=== PATIENT | female | born 1935 | race Caucasian/White ===

== ENCOUNTER 2021-01-09 12:21 | Inpatient (IN) | payer MEDICARE ==
[~2021-01-09] VITALS: Ht 165.1 cm; Wt 55.4 kg
[~2021-01-09 12:21] MED LIST: ALENDRONATE SOD35 MG PO; AMLODIPINE BESYL5 MG PO; ASA325 PO; BENAZEPRIL HCL10 MG PO; BENAZEPRIL HCL40 MG PO; CALCIUM + D PO; CALCIUM600 MG PO; CETIRIZINE HCL10 MG PO; FERROUS SULFAT325 MG PO; FUROSEMIDE40 MG PO; GABAPENTIN300 MG PO; KLOR-CON 1010 MEQ PO; KLOR-CON25 MEQ PO; METOPROLOL SUCC50 MG PO; NORCO 10-325 T1 EACH PO; NORCO 7.5-3251 EACH PO; NRC7.5T PO; OMEPRAZOLE20 M1 PO; OMEPRAZOLE40 MG PO; POTASSIUM99 M1 PO; SIMVASTATIN40 MG PO; ULTRAM 50MG50 MG PO; VITAMIN D PO; [UNRECOGNIZED DRUG - REMARK]
[2021-01-09 13:03] LABS: BASOPHILS % 0.1 % (0.0-1.0); HEMATOCRIT 30.4 % (34.2-44.1); HEMOGLOBIN 9.8 g/dL (12.0-16.0); LYMPHOCYTES # (AUTO) 0.3 (1.0-3.2); LYMPHOCYTES % 4.5 % (18.0-39.1); MEAN CORPUSCULAR HEMOGLOBIN 31.8 pg (28-32); MEAN CORPUSCULAR HGB CONC 32.2 g/dL (31-35); MEAN CORPUSCULAR VOLUME 98.7 fL (81-99); MONOCYTES # (AUTO) 0.2 (0.2-0.8); MONOCYTES % 2.8 % (4.4-11.3); NEUTROPHILS # (AUTO) 6.6 (2.1-6.9); NEUTROPHILS % 92.3 % (38.7-80.0); PLATELET COUNT 230 x10e3/uL (140-360); RED BLOOD COUNT 3.08 x10e6/uL (3.6-5.1); RED CELL DISTRIBUTION WIDTH 12.2 % (11.7-14.4)
[2021-01-09] MEDS ORDERED: ONDANSETRON HCL INJ 2MG/ML 2ML 2 MG/ML VIAL IV STA (13:10)
[2021-01-09] MEDS ORDERED: SODIUM CHLORIDE 0.9% 500ML 500 ML IV ONE ×2 (13:15→15:30)
[2021-01-09 13:25] LABS: ALBUMIN 3.9 g/dL (3.5-5.0); ALBUMIN/GLOBULIN RATIO 1.2 (0.8-2.0); ANION GAP 14.5 mmol/L (8-16); CALCIUM 9.1 mg/dL (8.4-10.2); CREATININE, SERUM 0.78 mg/dL (0.57-1.11); POTASSIUM 4.5 mmol/L (3.5-5.1)
[2021-01-09] MEDS ORDERED: SODIUM CHLORIDE 0.9% 50ML 50 ML ONE (13:49)
[2021-01-09] MEDS ORDERED: IOPAMIDOL 370 MG/ML 200 ML INFUS..BTL INJ ONE (13:49)
[2021-01-09 14:01] LABS: LYMPHOCYTES % (MANUAL) 2 % (19-48); MONOCYTES % (MANUAL) 4 % (3.4-9.0); NEUTROPHILS % (MANUAL) 94 % (40-74)
[2021-01-09 14:03] LABS: PLATELET ESTIMATE ADEQUATE; PLATELET MORPHOLOGY COMMENT FEW GIANT; RBC MORPHOLOGY COMMENT NORMAL
[2021-01-09 14:25] LABS: CLARITY,URINE SL CLOUDY (CLEAR); COLOR,URINE YELLOW (YELLOW); KETONES,URINE NEGATIVE (NEGATIVE); LEUKOCYTE ESTERASE ,URINE NEGATIVE (NEGATIVE); NITRITE,URINE NEGATIVE (NEGATIVE); PROTEIN,URINE DIPSTICK NEGATIVE (NEGATIVE); URINE UROBILINOGEN 0.2 mg/dL (0.2 - 1)
[2021-01-09 14:36] LABS: BACTERIA,URINE RARE /HPF; EPITHELIAL CELLS,URINE RARE /LPF; RBC,URINE 0-5 /HPF (0-5)
[2021-01-09] MEDS ORDERED: MORPHINE SULFATE INJ 2 MG/ML SYR IV STA ×2 (14:38→16:00)
[2021-01-09] MEDS ORDERED: METOCLOPRAMIDE HCL 10 MG/2ML VIAL IV ONE (14:45)
[2021-01-09 17:26] VITALS: BP 154/75
[2021-01-09] MEDS ORDERED: ATORVASTATIN CA20 MG PO (17:34)
[2021-01-09 17:38] VITALS: BP 154/75
[2021-01-09 17:47] VITALS: BP 154/75
[2021-01-09 20:00] VITALS: BP 147/70
[2021-01-09] MEDS ORDERED: METOPROLOL TARTRATE INJ 1 MG/ML VIAL IV ONE (20:00)
[2021-01-09] MEDS: MORPHINE SULFATE INJ 2 MG/ML SYR IV PRN (20:09)
[2021-01-09] MEDS: SODIUM CHLORIDE 0.9% 1000ML 1,000 ML IV SCH (20:09)
[2021-01-09] MEDS: PIPERACILLIN/TAZOBACTAM 3.375 GM in SODIUM CHLORIDE 0.9% 50ML 50 ML IV SCH (20:10)
[2021-01-09 21:05] VITALS: BP 111/60
[2021-01-09 21:16] VITALS: BP 147/70
[2021-01-10] VITALS (7 sets, daily range): BP systolic 128–165; BP diastolic 61–95
[2021-01-10] MEDS: PIPERACILLIN/TAZOBACTAM 3.375 GM in SODIUM CHLORIDE 0.9% 50ML 50 ML IV SCH ×5 (00:12→23:57)
[2021-01-10] MEDS: MORPHINE SULFATE INJ 2 MG/ML SYR IV PRN ×4 (01:34→19:27)
[2021-01-10 02:00] LABS: % IRON SATURATION 25 % (15-50); IRON 94 ug/dL (50-170); TOTAL IRON BINDING CAPACITY 381 ug/dL (261-478); TRANSFERRIN 272 mg/dL (180-382)
[2021-01-10] MEDS: FUROSEMIDE INJ 10 MG/ML 2 ML VIAL IV SCH (09:08)
[2021-01-10 09:42] LABS: WBC,FECAL (FECAL LACTOFERRIN) POSITIVE (NEGATIVE)
[2021-01-10] MEDS: PROMETHAZINE 12.5MG/ NACL 0.9% 12.5 MG/50 ML BAG IV PRN (11:20)
[2021-01-10 15:02] LABS: C DIFFICILE TOXIN A&B AMP PROB NEGATIVE (NEGATIVE)
[2021-01-10] MEDS: SODIUM CHLORIDE 0.9% 1000ML 1,000 ML IV SCH ×2 (18:00→23:57)
[2021-01-10] MEDS: GABAPENTIN 400 MG CAP PO SCH (19:25)
[2021-01-10 19:47] LABS: BASOPHILS % 0.1 % (0.0-1.0); HEMATOCRIT 25.1 % (34.2-44.1); HEMOGLOBIN 7.9 g/dL (12.0-16.0); LYMPHOCYTES # (AUTO) 0.6 (1.0-3.2); LYMPHOCYTES % 7.2 % (18.0-39.1); MEAN CORPUSCULAR HEMOGLOBIN 32.2 pg (28-32); MEAN CORPUSCULAR HGB CONC 31.5 g/dL (31-35); MEAN CORPUSCULAR VOLUME 102.4 fL (81-99); MONOCYTES # (AUTO) 0.4 (0.2-0.8); MONOCYTES % 5.3 % (4.4-11.3); NEUTROPHILS # (AUTO) 6.6 (2.1-6.9); NEUTROPHILS % 86.9 % (38.7-80.0); PLATELET COUNT 177 x10e3/uL (140-360); RED BLOOD COUNT 2.45 x10e6/uL (3.6-5.1); RED CELL DISTRIBUTION WIDTH 12.9 % (11.7-14.4)
[2021-01-10 20:07] LABS: CALCIUM 8.8 mg/dL (8.4-10.2); CREATININE, SERUM 0.8 mg/dL (0.57-1.11)
[2021-01-11] VITALS (7 sets, daily range): BP systolic 119–135; BP diastolic 57–69
[2021-01-11] MEDS ORDERED: CYANOCOBALAMIN INJ 1,000 MCG/ML VIAL IM ONE (00:15)
[2021-01-11] MEDS: PIPERACILLIN/TAZOBACTAM 3.375 GM in SODIUM CHLORIDE 0.9% 50ML 50 ML IV SCH ×3 (05:38→18:00)
[2021-01-11] MEDS: FUROSEMIDE INJ 10 MG/ML 2 ML VIAL IV SCH (09:15)
[2021-01-11] MEDS: GABAPENTIN 400 MG CAP PO SCH ×3 (09:15→21:05)
[2021-01-11] MEDS: MORPHINE SULFATE INJ 2 MG/ML SYR IV PRN ×2 (09:16→21:05)
[2021-01-11] MEDS: CYANOCOBALAMIN INJ 1,000 MCG/ML VIAL IM SCH (11:30)
[2021-01-11 11:48] LABS: ANION GAP 13.8 mmol/L (8-16); CALCIUM 8.6 mg/dL (8.4-10.2); CREATININE, SERUM 0.8 mg/dL (0.57-1.11)
[2021-01-11 11:56] LABS: POTASSIUM 2.8 mmol/L (3.5-5.1)
[2021-01-11] MEDS ORDERED: POTASSIUM CHLORIDE 20 MEQ TAB CR PO NR (12:15)
[2021-01-11 16:15] LABS: ANION GAP 12.7 mmol/L (8-16); CREATININE, SERUM 0.75 mg/dL (0.57-1.11)
[2021-01-11 16:25] LABS: POTASSIUM 2.7 mmol/L (3.5-5.1)
[2021-01-11] MEDS ORDERED: POTASSIUM CHLORIDE 20 MEQ TAB CR PO STA ×2 (16:59→20:20)
[2021-01-11] MEDS ORDERED: POTASSIUM CHLORIDE 20MEQ/100ML 100 ML IV ONE (17:00)
[2021-01-11] MEDS ORDERED: POTASSIUM CHLORIDE 10MEQ/100ML 100 ML IV ONE (17:15)
[2021-01-11 20:37] LABS: CALCIUM 8.1 mg/dL (8.4-10.2); CREATININE, SERUM 0.75 mg/dL (0.57-1.11)
[2021-01-11] MEDS: SODIUM CHLORIDE 0.9% 1000ML 1,000 ML IV SCH (21:05)
[2021-01-12] VITALS (7 sets, daily range): BP systolic 132–141; BP diastolic 62–75
[2021-01-12] MEDS: PIPERACILLIN/TAZOBACTAM 3.375 GM in SODIUM CHLORIDE 0.9% 50ML 50 ML IV SCH ×4 (00:37→18:00)
[2021-01-12] MEDS ORDERED: CHOLESTYRAMINE 4 GM PACKET PO ONE (00:45)
[2021-01-12 07:16] LABS: BASOPHILS % 0.4 % (0.0-1.0); EOSINOPHILS % 0.4 % (0.0-6.0); HEMATOCRIT 25.6 % (34.2-44.1); HEMOGLOBIN 7.6 g/dL (12.0-16.0); LYMPHOCYTES # (AUTO) 1.1 (1.0-3.2); LYMPHOCYTES % 15.4 % (18.0-39.1); MEAN CORPUSCULAR HEMOGLOBIN 32.2 pg (28-32); MEAN CORPUSCULAR HGB CONC 29.7 g/dL (31-35); MEAN CORPUSCULAR VOLUME 108.5 fL (81-99); MONOCYTES # (AUTO) 0.5 (0.2-0.8); MONOCYTES % 7.8 % (4.4-11.3); NEUTROPHILS # (AUTO) 5.2 (2.1-6.9); NEUTROPHILS % 75.6 % (38.7-80.0); PLATELET COUNT 170 x10e3/uL (140-360); RED BLOOD COUNT 2.36 x10e6/uL (3.6-5.1); RED CELL DISTRIBUTION WIDTH 13.2 % (11.7-14.4)
[2021-01-12 07:36] LABS: INR 1.18; PROTHROMBIN TIME 15.2 seconds (11.9-14.5)
[2021-01-12 07:45] LABS: ANION GAP 9.3 mmol/L (8-16); CALCIUM 8.2 mg/dL (8.4-10.2); CREATININE, SERUM 0.67 mg/dL (0.57-1.11); MAGNESIUM 1.8 MG/DL (1.3-2.1); PHOSPHORUS 1.5 MG/DL (2.3-4.7); POTASSIUM 4.3 mmol/L (3.5-5.1)
[2021-01-12] MEDS: MORPHINE SULFATE INJ 2 MG/ML SYR IV PRN ×3 (08:15→22:27)
[2021-01-12] MEDS: GABAPENTIN 400 MG CAP PO SCH ×3 (09:00→21:10)
[2021-01-12] MEDS: CYANOCOBALAMIN INJ 1,000 MCG/ML VIAL IM SCH (09:00)
[2021-01-12] MEDS: FUROSEMIDE INJ 10 MG/ML 2 ML VIAL IV SCH (09:00)
[2021-01-12] MEDS: CHOLESTYRAMINE 4 GM PACKET PO SCH (09:45)
[2021-01-12] MEDS: SODIUM CHLORIDE 0.9% 1000ML 1,000 ML IV SCH (12:55)
[2021-01-13] VITALS (9 sets, daily range): BP systolic 132–153; BP diastolic 58–80
[2021-01-13] MEDS: SODIUM CHLORIDE 0.9% 1000ML 1,000 ML IV SCH (04:18)
[2021-01-13] MEDS: PIPERACILLIN/TAZOBACTAM 3.375 GM in SODIUM CHLORIDE 0.9% 50ML 50 ML IV SCH ×6 (05:06→17:33)
[2021-01-13] MEDS: MORPHINE SULFATE INJ 2 MG/ML SYR IV PRN ×2 (05:07→11:26)
[2021-01-13] MEDS: FUROSEMIDE INJ 10 MG/ML 2 ML VIAL IV SCH (08:30)
[2021-01-13] MEDS: GABAPENTIN 400 MG CAP PO SCH ×3 (08:30→20:34)
[2021-01-13] MEDS: CYANOCOBALAMIN INJ 1,000 MCG/ML VIAL IM SCH (08:30)
[2021-01-13] MEDS: CHOLESTYRAMINE 4 GM PACKET PO SCH (08:38)
[2021-01-13 10:18] LABS: ANION GAP 10.9 mmol/L (8-16); CALCIUM 8.3 mg/dL (8.4-10.2); CREATININE, SERUM 0.66 mg/dL (0.57-1.11); MAGNESIUM 1.5 MG/DL (1.3-2.1); PHOSPHORUS 2.3 MG/DL (2.3-4.7)
[2021-01-13 10:29] LABS: POTASSIUM 2.9 mmol/L (3.5-5.1)
[2021-01-13 10:37] LABS: BASOPHILS % 0.3 % (0.0-1.0); EOSINOPHILS # (AUTO) 0.1 (0.0-0.4); EOSINOPHILS % 1.3 % (0.0-6.0); HEMATOCRIT 25.3 % (34.2-44.1); HEMOGLOBIN 8.2 g/dL (12.0-16.0); LYMPHOCYTES # (AUTO) 1.2 (1.0-3.2); LYMPHOCYTES % 14.6 % (18.0-39.1); MEAN CORPUSCULAR HEMOGLOBIN 32.7 pg (28-32); MEAN CORPUSCULAR HGB CONC 32.4 g/dL (31-35); MEAN CORPUSCULAR VOLUME 100.8 fL (81-99); MONOCYTES # (AUTO) 0.7 (0.2-0.8); MONOCYTES % 8.8 % (4.4-11.3); NEUTROPHILS # (AUTO) 5.9 (2.1-6.9); NEUTROPHILS % 74.6 % (38.7-80.0); PLATELET COUNT 190 x10e3/uL (140-360); RED BLOOD COUNT 2.51 x10e6/uL (3.6-5.1); RED CELL DISTRIBUTION WIDTH 12.7 % (11.7-14.4)
[2021-01-13] MEDS ORDERED: POTASSIUM CHLORIDE 20MEQ/100ML 100 ML IV ONE (12:00)
[2021-01-13] MEDS ORDERED: POTASSIUM CHLORIDE 10MEQ EA PO ONE (12:00)
[2021-01-13] MEDS ORDERED: POTASSIUM CHLORIDE 20 MEQ TAB CR PO ONE ×2 (19:00→19:05)
[2021-01-13] MEDS: POTASSIUM CHLORIDE 10MEQ EA PO SCH (21:47)
[2021-01-13] MEDS: ACETAMINOPHEN 325 MG TAB PO PRN (23:56)
[2021-01-14] MEDS: PIPERACILLIN/TAZOBACTAM 3.375 GM in SODIUM CHLORIDE 0.9% 50ML 50 ML IV SCH ×4 (01:27→18:04)
[2021-01-14] MEDS: SODIUM CHLORIDE 0.9% 1000ML 1,000 ML IV SCH ×3 (01:27→20:13)
[2021-01-14] MEDS: MORPHINE SULFATE INJ 2 MG/ML SYR IV PRN ×4 (01:28→19:02)
[2021-01-14 04:58] VITALS: BP 126/56
[2021-01-14 06:49] LABS: ANION GAP 9.4 mmol/L (8-16); CREATININE, SERUM 0.6 mg/dL (0.57-1.11); MAGNESIUM 1.5 MG/DL (1.3-2.1); PHOSPHORUS 2.6 MG/DL (2.3-4.7); POTASSIUM 4.4 mmol/L (3.5-5.1)
[2021-01-14 08:21] VITALS: BP 127/64
[2021-01-14] MEDS: FUROSEMIDE INJ 10 MG/ML 2 ML VIAL IV SCH (08:51)
[2021-01-14] MEDS: CYANOCOBALAMIN INJ 1,000 MCG/ML VIAL IM SCH (08:51)
[2021-01-14 08:52] VITALS: BP 127/64
[2021-01-14] MEDS: GABAPENTIN 400 MG CAP PO SCH ×3 (08:53→20:13)
[2021-01-14] MEDS: POTASSIUM CHLORIDE 10MEQ EA PO SCH ×2 (09:00→20:14)
[2021-01-14] MEDS: CHOLESTYRAMINE 4 GM PACKET PO SCH (10:00)
[2021-01-14 12:31] VITALS: BP 138/69
[2021-01-14] MEDS: DICLOFENAC SOD 1% GEL 100 GM TUBE TP SCH ×2 (18:04→20:13)
[2021-01-14 19:26] VITALS: BP 139/62
[2021-01-14 20:10] VITALS: BP 139/62
[2021-01-14] MEDS: SUCRALFATE 1 GM TAB PO SCH (20:13)
[2021-01-15 00:19] VITALS: BP 139/56
[2021-01-15] MEDS: PIPERACILLIN/TAZOBACTAM 3.375 GM in SODIUM CHLORIDE 0.9% 50ML 50 ML IV SCH ×4 (00:42→21:23)
[2021-01-15] MEDS: MORPHINE SULFATE INJ 2 MG/ML SYR IV PRN ×3 (00:44→13:10)
[2021-01-15 05:15] VITALS: BP 136/69
[2021-01-15 07:08] LABS: ANION GAP 11.1 mmol/L (8-16); CALCIUM 8.1 mg/dL (8.4-10.2); CREATININE, SERUM 0.65 mg/dL (0.57-1.11); POTASSIUM 4.1 mmol/L (3.5-5.1)
[2021-01-15 07:24] LABS: PHOSPHORUS 2.6 MG/DL (2.3-4.7)
[2021-01-15 07:56] VITALS: BP 132/60
[2021-01-15] MEDS: FUROSEMIDE INJ 10 MG/ML 2 ML VIAL IV SCH (08:00)
[2021-01-15] MEDS: SUCRALFATE 1 GM TAB PO SCH ×4 (08:00→20:46)
[2021-01-15] MEDS: CYANOCOBALAMIN INJ 1,000 MCG/ML VIAL IM SCH (08:00)
[2021-01-15] MEDS: GABAPENTIN 400 MG CAP PO SCH ×3 (08:01→20:47)
[2021-01-15] MEDS: DICLOFENAC SOD 1% GEL 100 GM TUBE TP SCH ×4 (08:01→21:00)
[2021-01-15] MEDS: POTASSIUM CHLORIDE 10MEQ EA PO SCH ×2 (08:01→20:47)
[2021-01-15 08:12] LABS: BASOPHILS % 0.5 % (0.0-1.0); EOSINOPHILS # (AUTO) 0.1 (0.0-0.4); EOSINOPHILS % 1.3 % (0.0-6.0); LYMPHOCYTES # (AUTO) 0.7 (1.0-3.2); LYMPHOCYTES % 9.2 % (18.0-39.1); MEAN CORPUSCULAR HEMOGLOBIN 31.9 pg (28-32); MEAN CORPUSCULAR HGB CONC 31.8 g/dL (31-35); MEAN CORPUSCULAR VOLUME 100.5 fL (81-99); MONOCYTES # (AUTO) 0.6 (0.2-0.8); NEUTROPHILS # (AUTO) 6.4 (2.1-6.9); NEUTROPHILS % 80.6 % (38.7-80.0); PLATELET COUNT 195 x10e3/uL (140-360); RED BLOOD COUNT 2.13 x10e6/uL (3.6-5.1); RED CELL DISTRIBUTION WIDTH 12.8 % (11.7-14.4)
[2021-01-15 08:24] LABS: HEMATOCRIT 21.4 % (34.2-44.1)
[2021-01-15 08:28] LABS: HEMOGLOBIN 6.8 g/dL (12.0-16.0)
[2021-01-15] MEDS ORDERED: SODIUM CHLORIDE 0.9% 250ML 250 ML IV ONE (08:45)
[2021-01-15 09:01] VITALS: BP 132/60
[2021-01-15] MEDS: CHOLESTYRAMINE 4 GM PACKET PO SCH (10:09)
[2021-01-15] MEDS: ACETAMINOPHEN 325 MG TAB PO PRN (12:43)
[2021-01-15 20:00] VITALS: BP 125/66
[2021-01-15 21:00] VITALS: BP 125/66
[2021-01-16] MEDS: SODIUM CHLORIDE 0.9% 1000ML 1,000 ML IV SCH ×2 (00:15→16:55)
[2021-01-16 00:24] VITALS: BP 135/67
[2021-01-16] MEDS: MORPHINE SULFATE INJ 2 MG/ML SYR IV PRN ×2 (01:02→09:39)
[2021-01-16] MEDS: PROMETHAZINE 12.5MG/ NACL 0.9% 12.5 MG/50 ML BAG IV PRN (01:03)
[2021-01-16] MEDS ORDERED: PHYTONADIONE 10 MG/ML AMP IV ONE (02:45)
[2021-01-16] MEDS ORDERED: PHYTONADIONE 10MG/ML 20 MG in SODIUM CHLORIDE 0.9% 100 ML 100 ML IV ONE ×2 (03:00→08:00)
[2021-01-16] MEDS: PIPERACILLIN/TAZOBACTAM 3.375 GM in SODIUM CHLORIDE 0.9% 50ML 50 ML IV SCH ×3 (04:00→17:03)
[2021-01-16 04:45] VITALS: BP 128/69
[2021-01-16 05:12] LABS: INR 1.21; PROTHROMBIN TIME 15.6 seconds (11.9-14.5)
[2021-01-16 05:13] LABS: PARTIAL THROMBOPLASTIN TIME 36.8 seconds (23.8-35.5)
[2021-01-16 05:30] LABS: BASOPHILS % 0.4 % (0.0-1.0); EOSINOPHILS # (AUTO) 0.3 (0.0-0.4); EOSINOPHILS % 5.3 % (0.0-6.0); HEMATOCRIT 28.4 % (34.2-44.1); HEMOGLOBIN 9.1 g/dL (12.0-16.0); LYMPHOCYTES # (AUTO) 0.9 (1.0-3.2); LYMPHOCYTES % 18.6 % (18.0-39.1); MEAN CORPUSCULAR HEMOGLOBIN 30.8 pg (28-32); MEAN CORPUSCULAR VOLUME 96.3 fL (81-99); MONOCYTES # (AUTO) 0.4 (0.2-0.8); MONOCYTES % 8.2 % (4.4-11.3); NEUTROPHILS # (AUTO) 3.3 (2.1-6.9); NEUTROPHILS % 67.1 % (38.7-80.0); PLATELET COUNT 197 x10e3/uL (140-360); RED BLOOD COUNT 2.95 x10e6/uL (3.6-5.1); RED CELL DISTRIBUTION WIDTH 14.9 % (11.7-14.4)
[2021-01-16] MEDS: ACETAMINOPHEN 325 MG TAB PO SCH ×3 (05:35→17:04)
[2021-01-16 05:40] LABS: ANION GAP 9.1 mmol/L (8-16); CALCIUM 8.1 mg/dL (8.4-10.2); CREATININE, SERUM 0.66 mg/dL (0.57-1.11); MAGNESIUM 1.7 MG/DL (1.3-2.1); PHOSPHORUS 2.7 MG/DL (2.3-4.7); POTASSIUM 4.1 mmol/L (3.5-5.1)
[2021-01-16] MEDS ORDERED: ACETAMINOPHEN 325 MG TAB PO SCH (06:00)
[2021-01-16] MEDS: SUCRALFATE 1 GM TAB PO SCH ×3 (07:57→17:03)
[2021-01-16] MEDS: FUROSEMIDE INJ 10 MG/ML 2 ML VIAL IV SCH (08:16)
[2021-01-16] MEDS: GABAPENTIN 400 MG CAP PO SCH ×2 (08:16→17:03)
[2021-01-16] MEDS: POTASSIUM CHLORIDE 10MEQ EA PO SCH (08:16)
[2021-01-16] MEDS: CYANOCOBALAMIN INJ 1,000 MCG/ML VIAL IM SCH (08:16)
[2021-01-16 08:50] VITALS: BP 128/69
[2021-01-16] MEDS ORDERED: PANTOPRAZOLE SO40 MG PO (10:12)
[2021-01-16] MEDS ORDERED: CARAFATE1 GM PO (10:12)
[2021-01-16] MEDS ORDERED: SENNA LAX8.6 MG PO (10:14)
[2021-01-16] MEDS: CHOLESTYRAMINE 4 GM PACKET PO SCH (10:16)
[2021-01-16 15:04] LABS: HEMATOCRIT 32.3 % (34.2-44.1)
== END 2021-01-16 18:45 | disposition home or self-care (01) | DRG 444 ==
LOC: ER 12:26 → ERHOLD 16:15 → MED/SURG3 17:05 → OBSVTOIN 01-11 09:41
PROVIDERS: ADMIT Internal Medicine; ATTEND Internal Medicine
PROC: 02HV33Z Insertion of Infusion Device into Superior Vena Cava, Percutaneous Approach (ICD-10-PCS; 2021-01-14)
PROC: B548ZZA Ultrasonography of Superior Vena Cava, Guidance (ICD-10-PCS; 2021-01-14)
PROC: 0DB78ZX Excision of Stomach, Pylorus, Via Natural or Artificial Opening Endoscopic, Diagnostic (ICD-10-PCS; principal; 2021-01-14 15:30)
PROC: 30233N1 Transfusion of Nonautologous Red Blood Cells into Peripheral Vein, Percutaneous Approach (ICD-10-PCS; 2021-01-15)
DX: K80.20 Calculus of gallbladder without cholecystitis without obstruction (principal); K25.4 Chronic or unspecified gastric ulcer with hemorrhage; F41.9 Anxiety disorder, unspecified; K21.9 Gastro-esophageal reflux disease without esophagitis; E78.5 Hyperlipidemia, unspecified; K20.90 Esophagitis, unspecified without bleeding; K29.70 Gastritis, unspecified, without bleeding; K44.9 Diaphragmatic hernia without obstruction or gangrene; K57.90 Diverticulosis of intestine, part unspecified, without perforation or abscess without bleeding; I11.0 Hypertensive heart disease with heart failure; I50.9 Heart failure, unspecified; E87.6 Hypokalemia; D64.89 Other specified anemias; Z20.822 Contact with and (suspected) exposure to COVID-19
CPT/HCPCS: 36415; 36569; 43239; 71045; 74177; 74181; 80048; 80053; 81001; 82270; 82607; 82746; 83540; 83605; 83630; 83690; 83735; 83993; 84100; 84132; 84466; 85014; 85018; 85025; 85045; 85610; 85730; 86850; 86900; 86920; 87040; 87045; 87177; 87493; 88305; 88312; 99251; 99284; G0378; J1940; J2270; J2405; J2543; J2550; J2765; J3420; J3430; J3480; J7030; J7040; J7050; P9016; Q9967; U0002